=== PATIENT | male | born 1970 ===

== ENCOUNTER 2017-08-05 13:47 | Emergency (ER) | payer OTHER ==
[2017-08-05 14:02] VITALS: TEMP 98.4; O2SAT 96
--- NOTE | 2017-08-05 14:50 | C.PDOC ---
History Of Present Illness 46 y/o M p/w L shoulder and L wrist pain since this morning. Patient states slipped on ice and fell onto outstretched L hand. Denies headstrike, LOC, N/V, numbness, weakness. Time Seen by Provider: 08/05/17 14:05 Chief Complaint (Nursing): Upper Extremity Problem/Injury Past Medical History Vital Signs: Last Vital Signs Temp 98.4 F 08/05/17 13:58 Pulse 67 08/05/17 15:17 Resp 20 08/05/17 15:17 BP 146/84 08/05/17 15:17 Pulse Ox 96 08/05/17 15:20 Family History: States: No Known Family Hx - Social History Hx Alcohol Use: No Hx Substance Use: No Review Of Systems Except As Marked, All Systems Reviewed And Found Negative. Constitutional: Negative for: Fever Cardiovascular: Negative for: Chest Pain Physical Exam - Physical Exam Additional Physical Exam Comments: Gen: NAD Head: NC/AT MSK: Tenderness over dorsal wrist. No snuffbox tenderness. FROM wrist, digits, elbow, shoulder. No clavicular tenderness. ED Course And Treatment O2 Sat by Pulse Oximetry: 96 Medical Decision Making Medical Decision Making: Acetaminophen and toradol for pain. XR to rule out fx/dislocation. Time: 14:53 X-Ray Left Wrist Findings: No evidence of acute displaced fracture or dislocation. Impression: Negative acute. If pain persists, consider MRI. Time: 14:55 X-Ray Left Shoulder Findings: No evidence of acute displaced fracture or dislocation. Glenohumeral and acromioclavicular joint spaces appear preserved. Small nodular density in the left lung base may represent vessel on end. Impression: Mild degenerative changes. If pain persists, consider MRI. Time: 14:55 X-Ray Left Hand Findings: No evidence of acute displaced fracture or dislocation. Impression: Negative acute. If pain persists, consider MRI. Disposition - Disposition Referrals: [facility] [Outside] Disposition: HOME/ ROUTINE Disposition Time: 15:26 Condition: STABLE Prescriptions: Ibuprofen [Motrin] 600 mg PO Q6 #25 tab Instructions: Wrist Injury (ED), Shoulder Pain (ED) Forms: [email or web address] ([employer]) - Clinical Impression Clinical Impression: Wrist pain, Shoulder pain
--- NOTE | 2017-08-05 14:55 | RAD ---
Left wrist four views History: Injury. Comparison: None available. Findings: No evidence of acute displaced fracture or dislocation. Impression: Negative acute. If pain persists, consider MRI.
--- NOTE | 2017-08-05 14:56 | RAD ---
Left shoulder three views History: Fall. Comparison: None available. Findings: No evidence of acute displaced fracture or dislocation. Glenohumeral and acromioclavicular joint spaces appear preserved. Small nodular density in the left lung base may represent vessel on end. Impression: Mild degenerative changes. If pain persists, consider MRI.
--- NOTE | 2017-08-05 15:05 | RAD ---
Left hand three views History: Fall. Comparison: None available. Findings: No evidence of acute displaced fracture or dislocation. Impression: Negative acute. If pain persists, consider MRI.
[2017-08-05 15:34] VITALS: BP 146/84; PULSE 67; RESP 20
== END 2017-08-05 15:33 | disposition home or self-care (01) ==
LOC: C.ER 13:47
DX: M25.512 Pain in left shoulder (principal); M25.532 Pain in left wrist
CPT/HCPCS: 73030; 73110; 73130; 96372; 99284; J1885